=== PATIENT | female | born 1945 | race Caucasian/White ===

== ENCOUNTER 2017-12-05 14:03 | Emergency (ER) | payer BC, MEDICARE ==
[~2017-12-05] VITALS: Ht 165.1 cm; Wt 101.6 kg
[~2017-12-05 14:03] MED LIST: ACYC5TO15G TOP; AMLO5 PO; ASPI81EC PO; B Complex1 EAC2; BELBUCA75 MCG BC; CLOB.05TC TOP; COQ1050 MG; DULO30 PO; FLECTOR PATCH; FLUO10 PO; Furosemide20 MG PO; GABA300 PO; HYDACE5 PO; HYDACE7.5 PO; K-Dur20 MEQ; LEVFLO500 PO; LISI20 PO; LISI5 PO; MAGCHL64ER; META800 PO; METO50 PO; Multiple Vitam1 EAC1 PO; NYST100P TOP; Nitrostat0.4 MG SL; OMEP20ER; ONDA4 PO; OXYB5 PO; PANT40 PO; Prozac20 MG; SUCR1 PO; TEMA15 PO; Vitamin D2000 UNIT PO; Voltaren100 GM TP
[2017-12-05] MEDS ORDERED: CEPH500 PO (15:36)
== END 2017-12-05 15:53 | disposition home or self-care (01) ==
LOC: ER 14:03
DX: S51.801A Unspecified open wound of right forearm, initial encounter (principal); Z88.8 Allergy status to other drugs, medicaments and biological substances; Z91.040 Latex allergy status; Z79.899 Other long term (current) drug therapy; Z79.82 Long term (current) use of aspirin; Z87.891 Personal history of nicotine dependence; Z23 Encounter for immunization; W01.198A Fall on same level from slipping, tripping and stumbling with subsequent striking against other object, initial encounter; Y92.89 Other specified places as the place of occurrence of the external cause
CPT/HCPCS: 73080; 73090; 90471; 90714; 99283

== ENCOUNTER 2017-12-07 | Day surgery (SDC) | END 2017-12-07 14:30 | disposition home or self-care (01) ==

== ENCOUNTER 2017-12-09 00:37 | Day surgery (SDC) | payer BC ==
[~2017-12-09 00:37] MED LIST changes: +CEPH500 PO
== END 2017-12-09 09:19 | disposition home or self-care (01) ==
LOC: WOUND 00:37
DX: Z48.00 Encounter for change or removal of nonsurgical wound dressing (principal); S51.831A Puncture wound without foreign body of right forearm, initial encounter; I10 Essential (primary) hypertension; G56.01 Carpal tunnel syndrome, right upper limb; G47.30 Sleep apnea, unspecified; D50.9 Iron deficiency anemia, unspecified; R00.1 Bradycardia, unspecified; R41.3 Other amnesia
CPT/HCPCS: G0463

== ENCOUNTER 2017-12-14 00:25 | Day surgery (SDC) | payer BC | END 2017-12-14 23:06 | disposition home or self-care (01) | LOC: WOUND 00:25 | PROC: 0HBDXZZ Excision of Right Lower Arm Skin, External Approach (ICD-10-PCS; principal; 2017-12-14) | DX: S51.831A Puncture wound without foreign body of right forearm, initial encounter (principal); I10 Essential (primary) hypertension; G56.01 Carpal tunnel syndrome, right upper limb; G47.30 Sleep apnea, unspecified; M79.7 Fibromyalgia; D50.9 Iron deficiency anemia, unspecified; R00.1 Bradycardia, unspecified; R41.3 Other amnesia; K76.89 Other specified diseases of liver; K91.1 Postgastric surgery syndromes; F41.8 Other specified anxiety disorders | CPT/HCPCS: G0463 ==

== ENCOUNTER 2017-12-21 15:29 | Day surgery (SDC) | payer BC | END 2017-12-21 16:38 | disposition home or self-care (01) | LOC: WOUND 15:29 | DX: Z48.00 Encounter for change or removal of nonsurgical wound dressing (principal); S51.801A Unspecified open wound of right forearm, initial encounter; I10 Essential (primary) hypertension; G56.01 Carpal tunnel syndrome, right upper limb; G47.30 Sleep apnea, unspecified; M79.7 Fibromyalgia; D50.9 Iron deficiency anemia, unspecified; R00.1 Bradycardia, unspecified; R41.3 Other amnesia; K91.1 Postgastric surgery syndromes; F41.8 Other specified anxiety disorders | CPT/HCPCS: G0463 ==

== ENCOUNTER 2017-12-29 13:55 | Day surgery (SDC) | payer BC | END 2017-12-29 23:34 | disposition home or self-care (01) | LOC: WOUND 13:55 | DX: Z48.00 Encounter for change or removal of nonsurgical wound dressing (principal); S51.801A Unspecified open wound of right forearm, initial encounter; I10 Essential (primary) hypertension; G56.01 Carpal tunnel syndrome, right upper limb; G47.30 Sleep apnea, unspecified; M79.7 Fibromyalgia; D50.9 Iron deficiency anemia, unspecified; R00.1 Bradycardia, unspecified; R41.3 Other amnesia; K76.89 Other specified diseases of liver; K91.1 Postgastric surgery syndromes; F41.8 Other specified anxiety disorders | CPT/HCPCS: G0463 ==

== ENCOUNTER 2018-01-05 14:15 | Day surgery (SDC) | payer BC | END 2018-01-05 15:40 | disposition home or self-care (01) | LOC: WOUND 14:15 | DX: Z48.00 Encounter for change or removal of nonsurgical wound dressing (principal); S51.801D Unspecified open wound of right forearm, subsequent encounter; I10 Essential (primary) hypertension; G56.01 Carpal tunnel syndrome, right upper limb; G47.30 Sleep apnea, unspecified; D50.9 Iron deficiency anemia, unspecified; R41.3 Other amnesia; K91.1 Postgastric surgery syndromes; F41.8 Other specified anxiety disorders | CPT/HCPCS: G0463 ==

== ENCOUNTER 2018-01-10 07:50 | Day surgery (SDC) | payer BC | END 2018-01-10 22:39 | disposition home or self-care (01) | LOC: WOUND 07:50 | DX: Z48.00 Encounter for change or removal of nonsurgical wound dressing (principal); S51.801A Unspecified open wound of right forearm, initial encounter; I10 Essential (primary) hypertension; G56.01 Carpal tunnel syndrome, right upper limb; G47.30 Sleep apnea, unspecified; M79.7 Fibromyalgia; D50.9 Iron deficiency anemia, unspecified; R41.3 Other amnesia; K76.89 Other specified diseases of liver; K91.1 Postgastric surgery syndromes; F41.8 Other specified anxiety disorders | CPT/HCPCS: G0463 ==

== ENCOUNTER 2018-01-17 09:00 | Day surgery (SDC) | payer BC | END 2018-01-17 10:28 | disposition home or self-care (01) | LOC: WOUND 09:00 | DX: Z48.00 Encounter for change or removal of nonsurgical wound dressing (principal); S51.801D Unspecified open wound of right forearm, subsequent encounter; I73.9 Peripheral vascular disease, unspecified; I10 Essential (primary) hypertension; G56.01 Carpal tunnel syndrome, right upper limb; G47.30 Sleep apnea, unspecified; M79.7 Fibromyalgia; D50.9 Iron deficiency anemia, unspecified; R00.1 Bradycardia, unspecified; R41.3 Other amnesia; K76.89 Other specified diseases of liver; K91.1 Postgastric surgery syndromes; F41.8 Other specified anxiety disorders | CPT/HCPCS: G0463 ==

== ENCOUNTER 2018-01-24 16:00 | Day surgery (SDC) | payer BC | END 2018-01-24 16:53 | disposition home or self-care (01) | LOC: WOUND 16:00 | DX: Z48.00 Encounter for change or removal of nonsurgical wound dressing (principal); S51.801A Unspecified open wound of right forearm, initial encounter | CPT/HCPCS: G0463 ==

== ENCOUNTER → 2018-10-27 | Outpatient (CLI) | payer BC | END | disposition home or self-care (01) | LOC: LAB 14:45 → LAB SHORT 14:45 | DX: K30 Functional dyspepsia (principal) | CPT/HCPCS: 87338 ==